=== PATIENT | male | born 1965 | race Caucasian/White ===

== ENCOUNTER 2017-03-14 11:41 | Emergency (ER) | payer OTHER ==
[~2017-03-14] VITALS: Ht 182.9 cm; Wt 96.3 kg
[~2017-03-14 11:41] MED LIST: CITA-112 PO; DICL-201 PO; FLX10 PO; GABA-113 PO; NRN600 PO; NRT/25 PO; SYN75 PO; [UNRECOGNIZED DRUG - CODE] OR; [UNRECOGNIZED DRUG - OTHER]
[2017-03-14 11:48] VITALS: TEMP 36.9; Ht 182.9 cm; Wt 96.3 kg
[2017-03-14] MEDS ORDERED: SODIUM CHLORIDE 0.9% 1000ML 1,000 ML IV STA ×2 (12:50)
[2017-03-14] MEDS ORDERED: CITA40TA4 PO (12:57)
[2017-03-14] MEDS ORDERED: LEVO150T9 PO (13:00)
[2017-03-14] MEDS ORDERED: OXYC1TAB3 PO (13:02)
[2017-03-14] MEDS ORDERED: WARF5TAB7 PO (13:03)
[2017-03-14] MEDS ORDERED: PANT40TA PO (13:05)
[2017-03-14] MEDS ORDERED: NITR-5 PO (13:07)
[2017-03-14] MEDS ORDERED: DOCU100C31 PO (13:08)
[2017-03-14 13:09] LABS: BASO % 0.5 %; BASO ABS # 0.07 K/uL (0-0.2); COMPLETE YES; EOS % 1.2 %; HEMATOCRIT 34.5 % (42-52); IG% 4.3 %; LYMPH % 7.9 %; LYMPH ABS # 1.08 K/uL (1.2-3.4); MEAN CELL VOLUME 83.1 fL (80-100); MEAN CORPUSCULAR HEMOGLOBIN 27.7 pg (25-34); MEAN CORPUSCULAR HGB CONC 33.3 g/dl (32-36); MEAN PLATELET VOLUME 9.4 fL (7.4-10.4); MONO % 9.3 %; NEUT % 76.8 %; PLATELET COUNT 314 K/uL (130-400); RED BLOOD COUNT 4.15 M/uL (4.7-6.1)
[2017-03-14 13:14] LABS: CALCIUM 10.5 mg/dl (8.5-10.1)
[2017-03-14 13:15] LABS: BUN/CREATININE RATIO 20.9 (10-20); CREATININE 0.9 mg/dl (0.60-1.40); POTASSIUM 4.4 mmol/L (3.5-5.1)
[2017-03-14 13:18] LABS: ALB/GLOB RATIO 0.8 (0.9-2)
[2017-03-14 14:53] VITALS: BP 135/82; PULSE 87; O2SAT 95
--- NOTE | 2017-03-14 15:13 | EMERGENCY ROOM VISIT NOTE ---
History Report prepared by Sabrina: Myah Pederson Under the Supervision of: Dr. Michelle Lopez D.O. First contact with patient: 12:27 Chief Complaint: VOMITING Stated Complaint: PAIN IN LEFT SIDE, VOMITING, SORENESS, CANT EAT Nursing Triage Summary: Pt ambulates to room. Reports nausea, vomiting, left sided abd pain x 4 days. Reports in study/experimental at [facility] for prostate cancer, mets to bone , lung. Was told by to come to the ED. Pt with urostomy. History of Present Illness The patient is a 51 year old male who presents to the Emergency Room with complaints of persistent vomiting starting for the past 4 days. He states that most things he eats makes him vomit. He was able to keep down some toast and a plain hamburger, but immediately threw up an apple that he tried to eat. In the morning, he vomits acid even before he eats anything. He has left abdominal pain. The pain started when his grandson fell into his ribs last week. He denies any leg cramping or swelling. He has an ostomy bag in place since 8 years ago because of radiation damage. He is having normal output through the bag. He is currently on an immunotherapy trial at [facility] for prostate cancer. He was there 3 days ago and was given medications to stop his vomiting which have not worked for him. He called [facility] today and was told to present to the ED. They do not believe it is related to the trial. They suggested he get a CT scan and an upper GI scope. Source of History: patient Onset: 4 days ago Position: other (global) Quality: other (vomiting) Timing: other (persistent) Modifying Factors (Worsening): eating Associated Symptoms: + abdominal pain Note: Pt denies leg cramping or swelling. Review of Systems See HPI for pertinent positives & negatives. A total of 10 systems reviewed and were otherwise negative. Past Medical & Surgical Medical Problems: (1) Prostate cancer Family History Cancer Diabetes mellitus Gallbladder disease Hypertension Kidney disease Kidney stones Social History Smoking Status: Current Every Day Smoker Marital Status: Housing Status: lives with significant other Occupation Status: disabled Current/Historical Medications Scheduled Citalopram (Citalopram Hydrobromide), 1 TAB PO DAILY Levothyroxine Sodium (Levothyroxine Sodium), 1 TAB PO DAILY Nitrofurantoin Monohyd Macrocr (Macrobid), 100 MG PO BID Pantoprazole (Protonix), 40 MG PO DAILY Warfarin Sod (Jantoven), 5 MG PO QPM Scheduled PRN Docusate Sodium (Docusate Sodium), 1 CAP PO DAILY PRN for Constipation Oxycodone Ir (Roxicodone Ir), 5 MG PO Q4H PRN for Pain Allergies Coded Allergies: Statins (Unverified Adverse Reaction, Intermediate, ACHES AND PAINS IN THE LEGS, 03/14/17) Physical Exam Vital Signs Date Time Temp Pulse Resp B/P Pulse Ox O2 Delivery O2 Flow Rate FiO2 03/14/17 14:53 87 18 135/82 95 03/14/17 13:39 87 18 120/72 94 Room Air 03/14/17 11:48 36.9 78 20 120/81 97 Room Air Physical Exam HEENT: Head - normocephalic and atraumatic Pupils are equal, round, and reactive to light. Extraocular eye muscles are intact, and sclera are anicteric. Nose - moist nasal mucosa without discharge. Mouth - dry buccal mucosa, dry lips. Oropharynx is nonerythematous and there is no tonsillar exudate or edema noted. Neck: Supple; no JVD, nuchal rigidity, cervical lymphadenopathy. Heart: Regular rate and rhythm. There is a normal S1 and S2 with no murmurs, clicks, or gallops appreciated. Lungs: Clear to auscultation bilaterally with no wheezes, rales, or rhonchi. Abdomen: Soft, completely nontender, nondistended, with good bowel sounds. There are no palpable pulsatile masses or hepatosplenomegaly. There is no guarding, rigidity, or rebound noted. Ostomy bag in the LLQ with both urine and stool. Extremities: No evidence of cyanosis, clubbing, or edema. There are easily palpable peripheral pulses. Skin: warm and dry with poor turgor and no rashes. Medical Decision & Procedures Laboratory Results 03/14/17 12:25 Red Blood Count 4.15, Mean Corpuscular Volume 83.1, Mean Corpuscular Hemoglobin 27.7, Mean Corpuscular Hemoglobin Concent 33.3, Mean Platelet Volume 9.4, Neutrophils (%) (Auto) 76.8, Lymphocytes (%) (Auto) 7.9, Monocytes (%) (Auto) 9.3, Eosinophils (%) (Auto) 1.2, Basophils (%) (Auto) 0.5, Neutrophils # (Auto) 10.43, Lymphocytes # (Auto) 1.08, Monocytes # (Auto) 1.27, Eosinophils # (Auto) 0.16, Basophils # (Auto) 0.07 03/14/17 12:25 Test 03/14/17 12:25 White Blood Count 13.60 K/uL (4.8-10.8) Red Blood Count 4.15 M/uL (4.7-6.1) Hemoglobin 11.5 g/dL (14.0-18.0) Hematocrit 34.5 % (42-52) Mean Corpuscular Volume 83.1 fL (80-100) Mean Corpuscular Hemoglobin 27.7 pg (25-34) Mean Corpuscular Hemoglobin Concent 33.3 g/dl (32-36) Platelet Count 314 K/uL (130-400) Mean Platelet Volume 9.4 fL (7.4-10.4) Neutrophils (%) (Auto) 76.8 % Lymphocytes (%) (Auto) 7.9 % Monocytes (%) (Auto) 9.3 % Eosinophils (%) (Auto) 1.2 % Basophils (%) (Auto) 0.5 % Neutrophils # (Auto) 10.43 K/uL (1.4-6.5) Lymphocytes # (Auto) 1.08 K/uL (1.2-3.4) Monocytes # (Auto) 1.27 K/uL (0.11-0.59) Eosinophils # (Auto) 0.16 K/uL (0-0.5) Basophils # (Auto) 0.07 K/uL (0-0.2) RDW Standard Deviation 48.5 fL (36.4-46.3) RDW Coefficient of Variation 16.0 % (11.5-14.5) Immature Granulocyte % (Auto) 4.3 % Immature Granulocyte # (Auto) 0.59 K/uL (0.00-0.02) Anion Gap 9.0 mmol/L (3-11) Est Creatinine Clear Calc Drug Dose 114.2 ml/min Estimated GFR () 112.6 Estimated GFR (Non- 97.2 BUN/Creatinine Ratio 20.9 (10-20) Calcium Level 10.5 mg/dl (8.5-10.1) Total Bilirubin 0.3 mg/dl (0.2-1) Aspartate Amino Transf (AST/SGOT) 21 U/L (15-37) Alanine Aminotransferase (ALT/SGPT) 35 U/L (12-78) Alkaline Phosphatase 317 U/L (45-117) Total Protein 8.5 gm/dl (6.4-8.2) Albumin 3.7 gm/dl (3.4-5.0) Globulin 4.8 gm/dl (2.5-4.0) Albumin/Globulin Ratio 0.8 (0.9-2) Lipase 96 U/L (73-393) Laboratory results per my review. Medications Administered Medications (Trade) Dose Ordered Sig/Rocío Route Start Time Stop Time Status Last Admin Dose Admin Sodium Chloride 1,000 ml @ 999 mls/hr Q1H1M STAT IV 03/14/17 12:50 03/14/17 13:50 DC 03/14/17 13:02 999 MLS/HR Sodium Chloride (Nss 1000ml) 1,000 ml @ 250 mls/hr Q4H STAT IV 03/14/17 12:50 03/14/17 15:02 DC 03/14/17 13:02 250 MLS/HR Procedure Medications: NSS 1000 ml @ 250 mls/hr IV, NSS 1000 ml @ 999 mls/hr IV. ED Course 1239: The patient was evaluated in room A3. A complete history and physical examination were performed. Nursing notes and previous electronic medical records were reviewed. IV lock was established and labs were drawn as above. 1250: NSS 1000 ml @ 250 mls/hr IV, NSS 1000 ml @ 999 mls/hr IV. 1339: I discussed the patient's case with [facility]. She will look more closely at his case and determine whether he should be scoped today or on Friday. 1346: I reevaluated the patient. He is resting comfortably. 1422: I spoke with Brett eMlgoza. He will have an EGD on Friday at [facility]. The patient is on Coumadin and this will be stopped until Friday. He will be Nothing by mouth after midnight on Friday. He'll take fluids throughout the weekend. 1430: Upon reevaluation, he is resting comfortably. I discussed findings and results with him. He verbalized agreement of the treatment plan. He was discharged home. Medical Decision The patient is a 51 year old male who presents to the ED with vomiting. Differential diagnosis includes dehydration, esophageal food impaction, esophageal stricture. Lab results show: WBC 13.6, hemoglobin 11.5, hematocrit 34.5, sodium 130, chloride 93, BUN 19, creatinine 0.9, glucose 92, normal lipase. The patient has a history of prostate cancer with prostatectomy and radiation. He is currently enrolled in a clinical trial at [facility]. He presents with symptoms which sound consistent with an esophageal stricture. Fluids do seemed to pass. He will require EGD. The patient is set up to have this performed on Friday at [facility]. He was told to return to the ER if he had any worsening symptoms. Consults Time Called: 1330 Consulting Physician: [facility] Returned Call: [phone] Discussed the patient's case. She will look more closely at his case and determine whether he should be scoped today or on Friday. Impression Primary Impression: Dysphagia Scribe Attestation The scribe's documentation has been prepared under my direction and personally reviewed by me in its entirety. I confirm that the note above accurately reflects all work, treatment, procedures, and medical decision making performed by me. Departure Information Dispostion Home / Self-Care Referrals Danie Goddard M.D. Forms HOME CARE DOCUMENTATION FORM, IMPORTANT VISIT INFORMATION Patient Instructions [facility] Additional Instructions Rest. take plenty of clear liquids Take fluids over the weekend Stop the coumadin today Go to [facility] on Friday at 8am
== END 2017-03-14 14:54 | disposition home or self-care (01) ==
LOC: C.EDB 11:45 → C.EDA 14:54
DX: R13.10 Dysphagia, unspecified (principal); C61 Malignant neoplasm of prostate; F17.200 Nicotine dependence, unspecified, uncomplicated; Z92.3 Personal history of irradiation; Z90.79 Acquired absence of other genital organ(s); Z83.3 Family history of diabetes mellitus; Z82.49 Family history of ischemic heart disease and other diseases of the circulatory system; Z84.1 Family history of disorders of kidney and ureter; Z79.01 Long term (current) use of anticoagulants